=== PATIENT | female | born 2005 | race Caucasian/White ===

== ENCOUNTER 2024-08-06 16:45 | Emergency (ER) | payer OTHER ==
[2024-08-06] MEDS ORDERED: ONDANSETRON 4 MG/2 ML VIAL ONE ×2 (17:56→19:47)
[2024-08-06] MEDS ORDERED: NA CHLORIDE 0.9% 2,000 ML ONE (17:56)
[2024-08-06 18:21] LABS: Specific Gravity 1.028 (1.005-1.030); Specific Gravity 1.029 (1.005-1.030); Urine Bacteria <20 /HPF (<20); Urine Bilirubin NEGATIVE (Negative); Urine Blood 1+ (Negative); Urine Clarity Extremely Turbid (Clear); Urine Color Yellow (Yellow); Urine Crystals Unidentified Few /HPF (None Seen); Urine Culture Reflex Order NOT NEEDED; Urine Glucose NEGATIVE (Negative); Urine Ketones 3+ (Negative); Urine Microscopic Reflex YN ORDER UMIC; Urine Mucus 2+ /HPF (None Seen); Urine Nitrite NEGATIVE (Negative); Urine Protein 1+ (Negative); Urine RBC <5 /HPF (None Seen); Urine Urobilinogen Normal (Normal); Urine WBC <5 /HPF (<5)
[2024-08-06 18:30] LABS: Anion Gap 10.4 mEq/L (5.0-15.0); Potassium 3.4 mEq/L (3.5-5.1)
[2024-08-06 18:34] LABS: Absolute Eosinophils 0.1 K/uL (0-0.5); Absolute Monocytes 0.5 K/uL (0.1-1.3); Basophils % 0.4 % (0-1.3); Eosinophils % 1.1 % (0-4.4); Hematocrit 39.4 % (36.0-45.0); Hemoglobin 13.7 g/dL (12.0-15.0); Lymphocytes % 26.5 % (15.3-44.8); MCH 29.2 pg (27.0-35.0); MCHC 34.8 g/dL (32.0-36.0); MCV 83.9 fL (80-100); Nucleated Red Blood Cells % 0.1 % (0-0); Platelets 185 thou/uL (152-406); RBC Red Blood Cell Count 4.69 M/uL (3.86-4.86); Red Cell Distribution Width 13.8 % (12.1-15.2)
[2024-08-06] MEDS ORDERED: POTASSIUM 25 MEQ EFFERV TAB ONE (19:37)
[2024-08-06] MEDS ORDERED: CEFTRIAXONE 1000 MG/VIAL ONE (19:37)
--- NOTE | 2024-08-06 19:46 | RAD REPORT ---
EXAMINATION: US FIRST TRIMESTER TRANSVAGINAL WITH DOPPLER CLINICAL INDICATION: with pelvic pain TECHNIQUE: Real-time obstetrical ultrasonography of the maternal pelvis and first trimester was performed transvaginally. Color and spectral Doppler evaluation of the ovaries was performed. COMPARISON: No prior exam. FINDINGS: The uterus measures 8 x 7 x 8 cm. It is retroverted. A gestational sac is present within the endometrium. Within this is a pole crown rump length 3. 2 cm. Cardiac activity 152 bpm. Small subchorionic hemorrhage Neither ovary seen secondary to overlying bowel gas Right and left adnexa unremarkable No significant free fluid IMPRESSION: Single live intrauterine with an estimated gestational age 10 weeks 1 day with a ELLE 025
--- NOTE | 2024-08-06 20:36 | ER ---
Nurse's Notes [facility] Name: Hayde Cordero Age: 19 yrs Sex: Female : 2005 Arrival Date: 08/06/2024 Time: 16:45 Bed 2 Private MD: Diagnosis: Mild hyperemesis gravidarum;Hypokalemia;10 weeks gestation of Presentation: 08/06 17:06 Chief complaint: Patient states: Approximately 10 weeks and has been vomiting. cm10 Pt states seeing doctor last and given medication. pt states that the medication for the nausea and vomiting is no longer working. Coronavirus screen: Client denies travel out of the [place] in the last 14 days. Ebola Screen: Patient denies travel to an Ebola-affected area in the 21 days before illness onset. Initial Sepsis Screen: Does the patient meet any 2 criteria? No. Patient's initial sepsis screen is negative. Does the patient have a suspected source of infection? No. Patient's initial sepsis screen is negative. Risk Assessment: Do you want to hurt yourself or someone else? Patient reports no desire to harm self or others. Onset of symptoms was August 06, 2024. 17:06 Method Of Arrival: Ambulatory cm10 17:06 Acuity: GONZALO 3 cm10 Triage Assessment: 17:07 General: Appears in no apparent distress. uncomfortable, Behavior is calm, cooperative. cm10 Pain: Complains of pain in abdomen Pain does not radiate. Pain currently is 4 out of 10 on a pain scale. Neuro: No deficits noted. Level of Consciousness is awake, alert, obeys commands, Oriented to person, place, time, situation, Appropriate for age. Respiratory: No deficits noted. Airway is patent Respiratory effort is even, unlabored, Respiratory pattern is regular, symmetrical. GI: Reports lower abdominal pain, upper abdominal pain, nausea, vomiting. 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 - Infectious Disease History:: Denies. - Social history:: Smoking status: Patient denies any tobacco usage or history of. Screenin:00 [facility] ED Fall Risk Assessment (Adult) History of falling in the last 3 months, ay including since admission No falls in past 3 months (0 pts) Confusion or Disorientation No (0 pts) Intoxicated or Sedated No (0 pts) Impaired Gait No (0 pts) Mobility Assist Device Used No (0 pt) Altered Elimination No (0 pt) Score/Fall Risk Level 0 - 2 = Low Risk Oriented to surroundings, Maintained a safe environment, Educated pt \T\ family on fall prevention, incl call for assistance when getting out of bed. Abuse screen: Denies threats or abuse. Denies injuries from another. Nutritional screening: No deficits noted. Tuberculosis screening: No symptoms or risk factors identified. Assessment: 18:19 Reassessment: Unable to detect FHT. ld1 19:00 Reassessment: Assumed care of pt. pt alert and oriented, VSS, no distress noted. Pt ay still c/o nausea. GI: Abdomen is round. Vital Signs: 17:06 BP 119 / 69; Pulse 86; Resp 15; Temp 98.6; Pulse Ox 98% on R/A; Weight 112.49 kg; cm10 Height 5 ft. 8 in. ; Pain 4/10; 21:00 BP 110 / 77; Pulse 86; Resp 18; Pulse Ox 96% on R/A; ay 17:06 Body Mass Index 37.71 (112.49 kg, 172.72 cm) cm10 17:06 Pain Scale: Adult cm10 [place] Coma Score: 18:36 Eye Response: spontaneous(4). Motor Response: obeys commands(6). Verbal Response: carrol oriented(5). Total: 15. ED Course: 11:30 Missed attempt(s): 20 gauge in right antecubital area. Bleeding controlled, band aid bc6 applied, catheter tip intact. 16:49 Patient arrived in ED. im 17:07 Triage completed. cm10 17:08 Arm band placed on right wrist. Patient placed in waiting room. cm10 17:16 Chai Handley MD is Attending Physician. carrol 17:41 Missed attempt(s): 20 gauge in right upper arm. bc6 18:05 Urinalysis w/ reflexes Sent. ld1 18:05 Test, Urine Sent. ld1 18:05 CBC with Diff Sent. ld1 18:05 Basic Metabolic Panel Sent. ld1 18:05 Abo/rh Typing Sent. ld1 19:00 Patient has correct armband on for positive identification. Bed in low position. Call ay light in reach. Side rails up X2. Adult w/ patient. 19:16 Terrance Jackman, RN is Primary Nurse. ay 19:21 US Transvaginal Ob In Process Unspecified. EDMS 21:20 No provider procedures requiring assistance completed. IV discontinued, intact, ay bleeding controlled, No redness/swelling at site. Pressure dressing applied. Administered Medications: 18:05 Drug: NS 0.9% IV 1000 ml IV at 1 bolus Per protocol; to be given as a bolus over 60 ld1 minutes Route: IV; Rate: 1 bolus; Site: left antecubital; 18:05 Drug: NS 0.9% IV 1000 ml IV at 1000 ml once; to be given as a bolus over 60 minutes ld1 Route: IV; Rate: 1000 ml; Site: left antecubital; 21:22 Follow up: Response: No adverse reaction ay 18:05 Drug: Ondansetron IVP 4 mg IVP once; over 2 minutes Route: IVP; Site: left antecubital; ld1 21:07 Follow up: Response: No adverse reaction ay 19:53 Drug: Potassium PO Effervescent Tablet 25 mEq PO once; dissolve in 4 ounces of water or ay juice Route: PO; 21:04 Follow up: Response: No adverse reaction ay 19:54 Drug: Rocephin IV 1 grams IV at per protocol once; Given slow IV push per pharmacy ay instructions Route: IV; Rate: per protocol; Site: left antecubital; 19:56 Drug: Ondansetron IVP 4 mg IVP once; over 2 minutes Route: IVP; Site: left antecubital; ay 21:04 Follow up: Response: No adverse reaction ay Medication: 21:00 VIS not applicable for this client. ay Outcome: 20:35 Discharge ordered by . carrol 21:20 Discharged to home ambulatory, ay 21:20 Condition: stable 21:20 Discharge instructions given to patient, Instructed on discharge instructions, follow up and referral plans. Demonstrated understanding of instructions, follow-up care, medications, Prescriptions given X 3, 21:22 Patient left the ED. ay Signatures: Dispatcher [employer] Chai Camacho MD MD cha Sims, Lauren, RN RN ld1 Tina Max 6 Mirlande Coy Clarissa RN RN cm10 Terrance Jackman RN RN ay Corrections: (The following items were deleted from the chart) 21:19 19:00 BP 110 / 77; Pulse 86bpm; Resp 18bpm; Pulse Ox 96% RA; ay ay
--- NOTE | 2024-08-06 20:36 | EDPHYS ---
Physician Documentation [facility] Name: Hayde Cordero Age: 19 yrs Sex: Female : 2005 Arrival Date: 08/06/2024 Time: 16:45 Bed 2 Private MD: ED Physician Chai Handley HPI: 08/06 18:36 This 19 yrs old Female presents to ER via Ambulatory with complaints of 10 carrol weeks , Vomiting. 18:36 The patient presents to the emergency department with nausea, vomiting, abdominal pain, carrol of the right upper quadrant, left upper quadrant, right lower quadrant and left lower quadrant. Onset: The symptoms/episode began/occurred 3 day(s) ago. Possible causes: . The symptoms are aggravated by nothing. The symptoms are alleviated by nothing. Associated signs and symptoms: The patient has no apparent associated signs or symptoms. Severity of symptoms: At their worst the symptoms were mild in the emergency department the symptoms are unchanged. The patient has experienced similar episodes in the past, several times. 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 - Infectious Disease History:: Denies. - Social history:: Smoking status: Patient denies any tobacco usage or history of. ROS: 18:36 Constitutional: Negative for fever, chills, and weight loss, Eyes: Negative for injury, carrol pain, redness, and discharge, ENT: Negative for injury, pain, and discharge, Neck: Negative for injury, pain, and swelling, Cardiovascular: Negative for chest pain, palpitations, and edema, Respiratory: Negative for shortness of breath, cough, wheezing, and pleuritic chest pain, Back: Negative for injury and pain, : Negative for injury, bleeding, discharge, and swelling, MS/Extremity: Negative for injury and deformity, Skin: Negative for injury, rash, and discoloration, Neuro: Negative for headache, weakness, numbness, tingling, and seizure, Psych: Negative for depression, anxiety, suicide ideation, homicidal ideation, and hallucinations, Allergy/Immunology: Negative for hives, rash, and allergies, Endocrine: Negative for neck swelling, polydipsia, polyuria, polyphagia, and marked weight changes, Hematologic/Lymphatic: Negative for swollen nodes, abnormal bleeding, and unusual bruising, 18:36 Abdomen/GI: Positive for abdominal pain, nausea and vomiting, abdominal cramps, Exam: 18:36 Constitutional: This is a well developed, well nourished patient who is awake, alert, carrol and in no acute distress. Head/Face: Normocephalic, atraumatic. Eyes: Pupils equal round and reactive to light, extra-ocular motions intact. Lids and lashes normal. Conjunctiva and sclera are non-icteric and not injected. Cornea within normal limits. Periorbital areas with no swelling, redness, or edema. ENT: Nares patent. No nasal discharge, no septal abnormalities noted. Tympanic membranes are normal and external auditory canals are clear. Oropharynx with no redness, swelling, or masses, exudates, or evidence of obstruction, uvula midline. Mucous membranes moist. Neck: Trachea midline, no thyromegaly or masses palpated, and no cervical lymphadenopathy. Supple, full range of motion without nuchal rigidity, or vertebral point tenderness. No Meningismus. Chest/axilla: Normal chest wall appearance and motion. Nontender with no deformity. No lesions are appreciated. Cardiovascular: Regular rate and rhythm with a normal S1 and S2. No gallops, murmurs, or rubs. Normal PMI, no JVD. No pulse deficits. Respiratory: Lungs have equal breath sounds bilaterally, clear to auscultation and percussion. No rales, rhonchi or wheezes noted. No increased work of breathing, no retractions or nasal flaring. Abdomen/GI: Soft, non-tender, with normal bowel sounds. No distension or tympany. No guarding or rebound. No evidence of tenderness throughout. Back: No spinal tenderness. No costovertebral tenderness. Full range of motion. Skin: Warm, dry with normal turgor. Normal color with no rashes, no lesions, and no evidence of cellulitis. MS/ Extremity: Pulses equal, no cyanosis. Neurovascular intact. Full, normal range of motion., bilateral aka Neuro: Awake and alert, GCS 15, oriented to person, place, time, and situation. Cranial nerves II-XII grossly intact. Motor strength 5/5 in all extremities. Sensory grossly intact. Cerebellar exam normal. Normal gait. Psych: Awake, alert, with orientation to person, place and time. Behavior, mood, and affect are within normal limits. Vital Signs: 17:06 BP 119 / 69; Pulse 86; Resp 15; Temp 98.6; Pulse Ox 98% on R/A; Weight 112.49 kg; cm10 Height 5 ft. 8 in. ; Pain 4/10; 21:00 BP 110 / 77; Pulse 86; Resp 18; Pulse Ox 96% on R/A; ay 17:06 Body Mass Index 37.71 (112.49 kg, 172.72 cm) cm10 17:06 Pain Scale: Adult cm10 [place] Coma Score: 18:36 Eye Response: spontaneous(4). Motor Response: obeys commands(6). Verbal Response: carrol oriented(5). Total: 15. MDM: 17:16 Medical Screening Exam initiated carrol 18:37 Differential diagnosis: Nonspecific abd pain, viral gastroenteritis, gastroenteritis, carrol gastritis, urinary tract infection. Data reviewed: vital signs, nurses notes, lab test result(s), radiologic studies, ultrasound. Consideration of Admission/Observation Escalation of care including admission/observation considered. I considered the following discharge prescriptions or medication management in the emergency department Medications were administered in the Emergency Department. See MAR. Independent interpretation of the following test(s) in the Emergency Department Radiology Department Ultrasound: My interpretation is vag probe. Test considered but Not performed: CT: no ct ab/pel preg. Historians other than the Patient: Family Member: spouse well informed. Care significantly affected by the following chronic conditions: none preg. 08/06 17:18 Order name: Abo/rh Typing; Complete Time: 19:45 [facility] 08/06 17:18 Order name: Basic Metabolic Panel; Complete Time: 18:35 [facility] 08/06 17:18 Order name: CBC with Diff; Complete Time: 19:45 [facility] 08/06 17:18 Order name: Test, Urine; Complete Time: 18:27 [facility] 08/06 17:18 Order name: Urinalysis w/ reflexes; Complete Time: 18:27 [facility] 08/06 18:35 Order name: US Transvaginal Ob; Complete Time: 20:35 [facility] 08/06 17:18 Order name: IV Saline Lock; Complete Time: 18:00 [facility] 08/06 17:18 Order name: Labs collected and sent; Complete Time: 18:00 [facility] 08/06 17:18 Order name: NPO; Complete Time: 18:00 [facility] 08/06 17:18 Order name: FHT's; Complete Time: 18:19 [facility] 08/06 18:36 Order name: PO challenge: juice; Complete Time: 20:56 carrol Administered Medications: 18:05 Drug: NS 0.9% IV 1000 ml IV at 1 bolus Per protocol; to be given as a bolus over 60 ld1 minutes Route: IV; Rate: 1 bolus; Site: left antecubital; 18:05 Drug: NS 0.9% IV 1000 ml IV at 1000 ml once; to be given as a bolus over 60 minutes ld1 Route: IV; Rate: 1000 ml; Site: left antecubital; 21:22 Follow up: Response: No adverse reaction ay 18:05 Drug: Ondansetron IVP 4 mg IVP once; over 2 minutes Route: IVP; Site: left antecubital; ld1 21:07 Follow up: Response: No adverse reaction ay 19:53 Drug: Potassium PO Effervescent Tablet 25 mEq PO once; dissolve in 4 ounces of water or ay juice Route: PO; 21:04 Follow up: Response: No adverse reaction ay 19:54 Drug: Rocephin IV 1 grams IV at per protocol once; Given slow IV push per pharmacy ay instructions Route: IV; Rate: per protocol; Site: left antecubital; 19:56 Drug: Ondansetron IVP 4 mg IVP once; over 2 minutes Route: IVP; Site: left antecubital; ay 21:04 Follow up: Response: No adverse reaction ay Disposition Summary: 08/06/24 20:35 Discharge Ordered Notes: Location: Home carrol Problem: new carrol Symptoms: have improved carrol Condition: Stable carrol Diagnosis - Mild hyperemesis gravidarum carrol - Hypokalemia carrol - 10 weeks gestation of carrol Followup: carrol - With: Private Physician - When: 2 - 3 days - Reason: Recheck today's complaints, Continuance of care, Re-evaluation by your physician Discharge Instructions: - Discharge Summary Sheet carrol - Potassium Content of Foods carrol - Hyperemesis Gravidarum carrol - Morning Sickness, [id number] carrol - Care carrol - Urinary Tract Infection, Adult carrol - Vaginal Bleeding During , First Trimester carrol - Urinary Tract Infection, Adult, [id number] carrol - Hypokalemia [facility] Forms: - Medication Reconciliation Form carrol - Antibiotic Education carrol - Prescription Opioid Use carrol - Patient Portal Instructions [facility] - Leadership Thank You Letter [facility] Prescriptions: - Diclegis 10-10 mg Oral tablet, delayed release (enteric coated) - take 1 tablet ORAL route 3 times per day; 45 tablet; Refills: 0, Product [facility] Selection Permitted - cefdinir 300 mg Oral capsule - take 1 capsule ORAL route every 12 hours for 5 days; 10 capsule; Refills: 0, [facility] Product Selection Permitted - ondansetron 4 mg Oral Tablet,disintegrating - take 1 tablet ORAL route every 8 hours for 5 days as needed for nausea and carrol vomiting; 20 tablet; Refills: 0, Product Selection Permitted Signatures: Dispatcher [employer] Chai Camacho MD MD cha Sims, Lauren RN RN ld1 Rhoda Read RN RN cm10 Terrance Jackman RN RN ay
[2024-08-09 01:43] VITALS: BP 110/77; TEMP 98.6; O2SAT 96
== END 2024-08-06 21:22 | disposition home or self-care (01) ==
LOC: ER 16:45
DX: O21.0 Mild hyperemesis gravidarum (principal); O99.281 Endocrine, nutritional and metabolic diseases complicating pregnancy, first trimester; E87.6 Hypokalemia; Z3A.10 10 weeks gestation of pregnancy
CPT/HCPCS: 85025; 81001; 80048; 36415; 86900; 81025; 86901; 76817; 96375; 96374; 99284; J2405 ×2; J7030; J0696